=== PATIENT | female | born 1995 | race Hispanic/Latino ===

== ENCOUNTER 2020-06-29 16:51 | Outpatient (CLI) | payer MEDICAID ==
[2020-06-29 17:27] VITALS: BP 139/81
[2020-06-29] MEDS ORDERED: LACTATED RINGERS 500 ML IV ONE (17:40)
[2020-06-29] MEDS ORDERED: LACTATED RINGERS 1,000 ML ONE (17:52)
[2020-06-29 20:48] LABS: Bacteria,Urine 2+ /HPF (Negative); Bilirubin,Urine NEG (Negative); Blood,Urine NEG (Negative); Color,Urine Colorless (Yellow); Protein,Urine <15 mg/dL mg/dL (Negative); Urobilinogen,Urine < 2.0 mg/dL (<2.0)
[2020-06-29] MEDS ORDERED: ACETAMINOPHEN 500 MG TAB PO ONE (21:01)
== END 2020-06-29 21:08 | disposition home or self-care (01) ==
LOC: TRG 16:51 → APU 16:53 → TRG 21:08
PROVIDERS: ATTEND Obstetrics & Gynecology
DX: O26.893 Other specified pregnancy related conditions, third trimester (principal); R10.30 Lower abdominal pain, unspecified; O47.03 False labor before 37 completed weeks of gestation, third trimester; Z3A.28 28 weeks gestation of pregnancy
CPT/HCPCS: 36415; 59025; 81001; 82731; J7120; 96360